=== PATIENT | male | born 1970 | race Caucasian/White ===

== ENCOUNTER → 2016-12-18 | Outpatient (CLI) | payer OTHER ==
[2016-12-18 13:22] LABS: BLOOD UREA NITROGEN 20 mg/dl (7-18); BUN/CREATININE RATIO 15.3 (10-20); CALCIUM 9.4 mg/dl (8.5-10.1); CARBON DIOXIDE 28 mmol/L (21-32); CHLORIDE 103 mmol/L (98-107); CHOLESTEROL 171 mg/dl (0-200); GLUCOSE 96 mg/dl (70-99); POTASSIUM 4.4 mmol/L (3.5-5.1); SODIUM 138 mmol/L (136-145)
[2016-12-18 13:27] LABS: CHOLESTEROL/HDL RATIO 3.3; HDL CHOLESTEROL 52 mg/dl; LDL CHOLESTEROL CALCULATED 80 mg/dl; TRIGLYCERIDES 194 mg/dl (0-150); VERY LOW DENSITY LIPOPROT CALC 39 mg/dl
== END | disposition home or self-care (01) ==
LOC: C.LABPVFM 07:26
PROVIDERS: ATTEND Internal Medicine
DX: M19.90 Unspecified osteoarthritis, unspecified site (principal); Z13.220 Encounter for screening for lipoid disorders

== ENCOUNTER 2018-01-12 17:43 | Emergency (ER) | payer SELFPAY ==
[~2018-01-12] VITALS: Ht 182.9 cm; Wt 70.2 kg
[2018-01-12 17:46] VITALS: TEMP 37.2; Ht 182.9 cm; Wt 70.2 kg
[2018-01-12] MEDS ORDERED: SODIUM CHLORIDE 0.9% 1000ML 1,000 ML IV ONE (18:00)
[2018-01-12] MEDS ORDERED: ONDANSETRON INJ 2 MG/ML 2 ML VIAL IV STA (18:00)
[2018-01-12] MEDS ORDERED: SODIUM CHLORIDE 0.9% 1000ML 1,000 ML IV STA ×2 (18:00→19:11)
[2018-01-12 18:19] LABS: BASO % 0.1 %; BASO ABS # 0.02 K/uL (0-0.2); EOS % 0.2 %; EOS ABS # 0.03 K/uL (0-0.5); HEMATOCRIT 46.9 % (42-52); HEMOGLOBIN 16.9 g/dL (14.0-18.0); IG# 0.06 K/uL (0.00-0.02); LYMPH % 2.7 %; LYMPH ABS # 0.47 K/uL (1.2-3.4); MEAN CELL VOLUME 81.1 fL (80-100); MEAN CORPUSCULAR HEMOGLOBIN 29.2 pg (25-34); MEAN PLATELET VOLUME 9.6 fL (7.4-10.4); MONO % 5.8 %; MONO ABS # 1.01 K/uL (0.11-0.59); NEUT % 90.9 %; PLATELET COUNT 261 K/uL (130-400); RED CELL DISTRIBUTION WIDTH CV 13.5 % (11.5-14.5); WHITE BLOOD COUNT 17.29 K/uL (4.8-10.8)
--- NOTE | 2018-01-12 18:21 | EMERGENCY ROOM VISIT NOTE ---
History Report prepared by Faustino: Denise Acosta Under the Supervision of: Dr. Librado Brunson M.D. First contact with patient: 17:49 Chief Complaint: ABDOMINAL PAIN Stated Complaint: ABDOMINAL PAIN, CRAMPING, VOMITING History of Present Illness The patient is a 47 year old male who presents to the Emergency Room with complaints of intermittent abdominal cramping starting last night. The pain is on the left side of his abdomen, just below the belly button. The pain worsened with driving over bumps in the road. He has been nauseous and vomiting since last night. He has been unable to keep any fluids down. He has had a low grade fever. He has a slight headache which he thinks is from not drinking enough water. He has some back pain from laying in bed more than usual. He denies any cough, diarrhea, leg pain/swelling, black/bloody stools, bloody or dark vomit, testicle pain/swelling, hematuria, or burning with urination. He has been urinating less which he attributes to not drinking enough water. The patient works in construction. He denies any recent injury or exposure to chemicals. He has had no known sick contacts. He has not eaten any unusual foods. He denies any recent travel. He notes that he started permethrin for scabies last week. He is not on any other medications. He has a history of hernia surgery. He still has his appendix and gallbladder. He denies any history of kidney stones. Source of History: patient, spouse/significant other Onset: last night Position: abdomen (left) Quality: cramping Timing: intermittent Modifying Factors (Worsening): other (bumps in the road) Associated Symptoms: + fevers (low grade), + headache, + nausea, + vomiting , + back pain, No cough, No melena, No hematochezia, No diarrhea, No urinary symptoms Review of Systems See HPI for pertinent positives & negatives. A total of 10 systems reviewed and were otherwise negative. Past Medical & Surgical Surgical Problems: (1) S/P hernia surgery Old medical records were reviewed. Nurse's notes were reviewed and I agree with. Family History No pertinent family history stated Social History Smoking Status: Never Smoker Alcohol Use: none Drug Use: none Occupation Status: employed Current/Historical Medications Scheduled Prednisone (Prednisone), 20 MG PO DIRECTED Allergies Coded Allergies: No Known Allergies (Unverified , 8/4/18) Physical Exam Vital Signs Date Time Temp Pulse Resp B/P (MAP) Pulse Ox O2 Delivery O2 Flow Rate FiO2 01/12/18 21:40 112/61 01/12/18 21:35 77 16 98 01/12/18 21:20 81 98 01/12/18 21:15 79 18 98 Room Air 01/12/18 20:45 74 99 01/12/18 20:15 73 117/67 98 01/12/18 18:53 125/67 01/12/18 18:52 77 18 125/67 98 Room Air 01/12/18 17:46 37.2 126 16 99/64 94 Room Air Physical Exam General: Mildly-ill appearing middle age male in no respiratory distress. HEENT: Normal cephalic atraumatic. Pupils are equal round and reactive to light. Extraocular movements are intact. Oropharynx is pink with moist mucous membranes. No swelling of the mouth lips or tongue. Neck: Supple with a midline trachea. No meningeal signs or stiffness, no JVD or bruits. No Stridor. Chest: Clear to auscultation bilaterally. No wheezes or rhonchi. No increased work of breathing. Heart: regular rate and rhythm. Abdomen: Soft, moderately tender in the RLQ, nondistended without rebound guarding or rigidity. Extremities: No cyanosis clubbing or edema. No calf tenderness or assymetry Spine/Back. Non tender to palpation. No CVA tenderness Skin: Good turgor without rashes. Neurologic exam: Cranial nerves two through 12 are intact. Motor and sensation are intact and symmetrical throughout. Medical Decision & Procedures ER Provider Diagnostic Interpretation: Radiology results as stated below per my review and radiologist interpretation: CT SCAN OF THE ABDOMEN AND PELVIS WITH IV CONTRAST CLINICAL HISTORY: Right lower quadrant abdominal pain. COMPARISON STUDY: No priors. TECHNIQUE: Following the IV administration of 116 cc of Optiray 320, CT scan of the abdomen and pelvis is performed from the lung bases to the proximal femora. Images are reviewed in the axial, sagittal, and coronal planes. IV contrast was administered without complication. A dose lowering technique was utilized adhering to the principles of ALARA. CT DOSE: 300.26 mGy.cm FINDINGS: Lung bases: The heart is normal in size and without pericardial effusion. The lung bases are clear. Liver: The contrast-enhanced liver is normal in size, contour, and attenuation. There is no intrahepatic biliary ductal dilatation. The hepatic veins and portal veins are patent. Gallbladder: Unremarkable. Spleen: Normal in size and attenuation. Pancreas: Unremarkable. Adrenal glands: Unremarkable. Kidneys: The contrast enhanced kidneys are normal in size and without hydronephrosis. The kidneys enhance symmetrically. Abdominal vasculature: The abdominal aorta is normal in course and caliber. Bowel: There is marked wall thickening and hyperemia seen involving a long segment of the distal/terminal ileum. This segment measures over 20 cm in length and there is surrounding inflammatory change. There is also mild wall thickening and edema in the adjacent cecum. The appearance is consistent with a nonspecific enteritis. There is no pneumatosis intestinalis or portal venous gas. There is no evidence of fistula formation. No bowel obstruction is identified. The appendix is well-visualized and normal. Calcified appendicoliths are noted. A small left-sided perianal fistula is suggested along the median gluteal crease on axial image #462. There is no evidence of perianal abscess. Peritoneum: There is trace abdominopelvic ascites. No intraperitoneal free air is seen. There is no evidence of abscess. Lymphadenopathy: Prominent mesenteric lymph nodes in the right lower quadrant measure up to 9 mm in short axis. These are likely on a reactive basis. Pelvic viscera: The bladder, prostate, and seminal vesicles are normal as imaged. Skeletal structures: Mild sclerotic change is noted in the sacroiliac joints. No lytic or blastic lesions are seen. IMPRESSION: 1. Findings are consistent with a severe enteritis involving predominantly the distal/terminal ileum, likely on an infectious/inflammatory basis. Specifically, the appearance is highly concerning for Crohn's disease. 2. A small left perianal fistula is suspected with no evidence of perianal abscess. Clinical correlation will be required. There is also sclerotic change present in the sacroiliac joints. These findings would also support a diagnosis of Crohn's disease. 3. There is trace abdominopelvic ascites, likely on a reactive basis. 4. There is no intraperitoneal free air or evidence of abscess. Electronically signed by: Alfa Mcfarlane M.D. 01/12/2018 7:00 PM Dictated Date/Time: 01/12/2018 6:51 PM Laboratory Results 01/12/18 18:00 Red Blood Count 5.78, Mean Corpuscular Volume 81.1, Mean Corpuscular Hemoglobin 29.2, Mean Corpuscular Hemoglobin Concent 36.0, Mean Platelet Volume 9.6, Neutrophils (%) (Auto) 90.9, Lymphocytes (%) (Auto) 2.7, Monocytes (%) (Auto) 5.8, Eosinophils (%) (Auto) 0.2, Basophils (%) (Auto) 0.1, Neutrophils # (Auto) 15.70, Lymphocytes # (Auto) 0.47, Monocytes # (Auto) 1.01, Eosinophils # (Auto) 0.03, Basophils # (Auto) 0.02 01/12/18 18:00 Test 01/12/18 18:00 01/12/18 18:12 01/12/18 18:15 01/12/18 19:32 White Blood Count 17.29 K/uL (4.8-10.8) Red Blood Count 5.78 M/uL (4.7-6.1) Hemoglobin 16.9 g/dL (14.0-18.0) Hematocrit 46.9 % (42-52) Mean Corpuscular Volume 81.1 fL (80-100) Mean Corpuscular Hemoglobin 29.2 pg (25-34) Mean Corpuscular Hemoglobin Concent 36.0 g/dl (32-36) Platelet Count 261 K/uL (130-400) Mean Platelet Volume 9.6 fL (7.4-10.4) Neutrophils (%) (Auto) 90.9 % Lymphocytes (%) (Auto) 2.7 % Monocytes (%) (Auto) 5.8 % Eosinophils (%) (Auto) 0.2 % Basophils (%) (Auto) 0.1 % Neutrophils # (Auto) 15.70 K/uL (1.4-6.5) Lymphocytes # (Auto) 0.47 K/uL (1.2-3.4) Monocytes # (Auto) 1.01 K/uL (0.11-0.59) Eosinophils # (Auto) 0.03 K/uL (0-0.5) Basophils # (Auto) 0.02 K/uL (0-0.2) RDW Standard Deviation 40.0 fL (36.4-46.3) RDW Coefficient of Variation 13.5 % (11.5-14.5) Immature Granulocyte % (Auto) 0.3 % Immature Granulocyte # (Auto) 0.06 K/uL (0.00-0.02) Est Creatinine Clear Calc Drug Dose 98.6 ml/min Estimated GFR () 115.1 Estimated GFR (Non- 99.3 BUN/Creatinine Ratio 17.2 (10-20) Calcium Level 8.8 mg/dl (8.5-10.1) Total Bilirubin 0.9 mg/dl (0.2-1) Direct Bilirubin 0.2 mg/dl (0-0.2) Aspartate Amino Transf (AST/SGOT) 13 U/L (15-37) Alanine Aminotransferase (ALT/SGPT) 26 U/L (12-78) Alkaline Phosphatase 87 U/L (45-117) Total Protein 7.5 gm/dl (6.4-8.2) Albumin 4.0 gm/dl (3.4-5.0) Lipase 203 U/L (73-393) Bedside Hemoglobin 16.7 g/dl (14.0-18.0) Bedside Hematocrit 49 % (42-52) Bedside Sodium 140 mEq/L (135-144) Bedside Potassium 3.7 mEq/L (3.3-5.0) Bedside Chloride 101 mEq/L (101-112) Bedside Total CO2 24 mEq/l (24-31) Anion Gap 20.0 mmol/L (16-25) Bedside Blood Urea Nitrogen 16 mg/dl (7-18) Bedside Creatinine 0.9 mg/dl (0.6-1.3) Bedside Glucose (other) 109 mg/dl (70-99) Bedside Ionized Calcium (Dane) 1.07 mmol/l (1.12-1.32) Urine Color DK YELLOW Urine Appearance CLEAR (CLEAR) Urine pH 5.5 (4.5-7.5) Urine Specific Jachin 1.032 (1.000-1.030) Urine Protein TRACE (NEG) Urine Glucose (UA) NEG (NEG) Urine Ketones 2+ (NEG) Urine Occult Blood NEG (NEG) Urine Nitrite NEG (NEG) Urine Bilirubin NEG (NEG) Urine Urobilinogen NEG (NEG) Urine Leukocyte Esterase NEG (NEG) Urine WBC (Auto) 1-5 /hpf (0-5) Urine RBC (Auto) 5-10 /hpf (0-4) Urine Hyaline Casts (Auto) 1-5 /lpf (0-5) Urine Epithelial Cells (Auto) 5-10 /lpf (0-5) Urine Bacteria (Auto) NEG (NEG) Bedside Lactic Acid Venous 0.70 mmol/L (0.90-1.70) Test 01/12/18 21:01 Erythrocyte Sedimentation Rate 2 mm/hr (0-14) Vitamin B12 Level 249 pg/mL (211-911) Folate 15.70 ng/mL (>5.38) Laboratory studies as stated above per my review. Medications Administered Medications (Trade) Dose Ordered Sig/Caryn Route Start Time Stop Time Status Last Admin Dose Admin Sodium Chloride 1,000 ml @ 999 mls/hr Q1H1M STAT IV 01/12/18 18:00 01/12/18 19:00 DC 01/12/18 18:12 999 MLS/HR Sodium Chloride 1,000 ml @ 150 mls/hr Q6H40M ONCE IV 01/12/18 18:00 01/12/18 23:02 DC 01/12/18 18:53 150 MLS/HR Ondansetron HCl (Zofran Inj) 4 mg NOW STAT IV 01/12/18 18:00 01/12/18 18:02 DC 01/12/18 18:12 4 MG Sodium Chloride 1,000 ml @ 999 mls/hr Q1H1M STAT IV 01/12/18 19:11 01/12/18 20:11 DC 01/12/18 19:49 999 MLS/HR Piperacillin Sod/ Tazobactam Sod (Zosyn Iv) 4.5 gm NOW STAT IV 01/12/18 19:17 01/12/18 19:18 DC 01/12/18 20:12 4.5 GM Methylprednisolone Sodium Succinate 40 mg/Syringe 0.64 ml @ 1.5 mls/min NOW STAT IV 01/12/18 21:33 01/12/18 21:34 DC 01/12/18 21:40 1.5 MLS/MIN ED Course 1751: Past medical records reviewed. The patient was evaluated in room B9, and a complete history and physical examination were performed. 1800: Zofran Inj 4 mg IV, Sodium Chloride 1000 ml @ 150 mls/hr IV, Sodium Chloride 1000 ml @ 999 mls/hr IV. 1850: I reevaluated the patient. He has just returned from CT. 1906: I reevaluated the patient. He is feeling better. I discussed the results and treatment plan with the patient. He verbalized agreement of the treatment plan. The patient will be evaluated for further management. 1910: Sodium Chloride 1000 ml @ 999 mls/hr IV. 1916: Zosyn IV 4.5 gm IV. 1917: Dr. Santiago [facility] hospitalist will evaluate the patient for further management. Medical Decision Differentials include, but are not limited to; appendicitis, UTI, colitis, dehydration, sepsis, electrolyte or metabolic abnormality. This patient comes in as described above. He is placed in room benign. He has been vomiting. On exam, he does have a right lower quadrant abdominal pain so there is concern for appendicitis among other potential etiologies. He was kept n.p.o. IV access established hydrated with IV normal saline boluses. He was given Zofran 4 mg IV. I-STAT labs were obtained and he has a normal creatinine and therefore sent over for a IV CAT scan to rule out appendicitis and other pathology. Urinalysis shows ketones consistent with dehydration. He was reassessed frequently. He felt significantly better with IV fluids and his vital signs normalized he was no longer tachycardic as blood pressure was normal. His white count was elevated at 17,000. He was given Zosyn 4.5 g IV. CAT scan shows severe enteritis most likely from Crohn's disease. Blood cultures have been obtained. Lactic acid was not elevated. I did consult the [facility] hospitalist team for possible admission/ observation given his white count enteritis. They evaluated the patient in the ER and discussed the case with the aluminum molding machine operator. They are going to send him home and arrange for follow-up with the GI specialist. Please refer to their notes. Medication Reconcilliation Current Medication List: was personally reviewed by me Blood Pressure Screening Patient's blood pressure: Low blood pressure (initially) Referred to hospitalist Consults Time Called: 1915 Consulting Physician: KT Shane hospitalist Returned Call: 1917 The patient will be evaluated for further management. Impression Primary Impression: Colitis Additional Impressions: RLQ abdominal pain Dehydration Scribe Attestation The scribe's documentation has been prepared under my direction and personally reviewed by me in its entirety. I confirm that the note above accurately reflects all work, treatment, procedures, and medical decision making performed by me. Departure Information Dispostion Being Evaluated By Hospitalist Prescriptions Prednisone (Prednisone) 20 Mg Tab 20 MG PO DIRECTED for 42 Days, #38 TAB 40mg daily for week1 30mg daily for week 2 20mg daily for week 3 10mg daily for week 4 5mg daily for week 6 Prov: Manolo Aparicio .MD 01/12/18 Referrals Pro,Lester Chaudhry M.D. (PCP) Patient Instructions My [facility] Problem Qualifiers
[2018-01-12 18:25] LABS: ISTAT CREATININE 0.9 mg/dl (0.6-1.3); ISTAT IONIZED CALCIUM 1.07 mmol/l (1.12-1.32); ISTAT POTASSIUM 3.7 mEq/L (3.3-5.0)
[2018-01-12] MEDS ORDERED: OPTIRAY 320 IV PRN (18:30)
[2018-01-12 18:44] LABS: CALCIUM 8.8 mg/dl (8.5-10.1); CREATININE 0.91 mg/dl (0.60-1.40); POTASSIUM 3.6 mmol/L (3.5-5.1); TOTAL PROTEIN 7.5 gm/dl (6.4-8.2)
--- NOTE | 2018-01-12 19:01 | DIAGNOSTIC IMAGING REPORT ---
CT SCAN OF THE ABDOMEN AND PELVIS WITH IV CONTRAST CLINICAL HISTORY: Right lower quadrant abdominal pain. COMPARISON STUDY: No priors. TECHNIQUE: Following the IV administration of 116 cc of Optiray 320, CT scan of the abdomen and pelvis is performed from the lung bases to the proximal femora. Images are reviewed in the axial, sagittal, and coronal planes. IV contrast was administered without complication. A dose lowering technique was utilized adhering to the principles of ALARA. CT DOSE: 300.26 mGy.cm FINDINGS: Lung bases: The heart is normal in size and without pericardial effusion. The lung bases are clear. Liver: The contrast-enhanced liver is normal in size, contour, and attenuation. There is no intrahepatic biliary ductal dilatation. The hepatic veins and portal veins are patent. Gallbladder: Unremarkable. Spleen: Normal in size and attenuation. Pancreas: Unremarkable. Adrenal glands: Unremarkable. Kidneys: The contrast enhanced kidneys are normal in size and without hydronephrosis. The kidneys enhance symmetrically. Abdominal vasculature: The abdominal aorta is normal in course and caliber. Bowel: There is marked wall thickening and hyperemia seen involving a long segment of the distal/terminal ileum. This segment measures over 20 cm in length and there is surrounding inflammatory change. There is also mild wall thickening and edema in the adjacent cecum. The appearance is consistent with a nonspecific enteritis. There is no pneumatosis intestinalis or portal venous gas. There is no evidence of fistula formation. No bowel obstruction is identified. The appendix is well-visualized and normal. Calcified appendicoliths are noted. A small left-sided perianal fistula is suggested along the median gluteal crease on axial image #462. There is no evidence of perianal abscess. Peritoneum: There is trace abdominopelvic ascites. No intraperitoneal free air is seen. There is no evidence of abscess. Lymphadenopathy: Prominent mesenteric lymph nodes in the right lower quadrant measure up to 9 mm in short axis. These are likely on a reactive basis. Pelvic viscera: The bladder, prostate, and seminal vesicles are normal as imaged. Skeletal structures: Mild sclerotic change is noted in the sacroiliac joints. No lytic or blastic lesions are seen. IMPRESSION: 1. Findings are consistent with a severe enteritis involving predominantly the distal/terminal ileum, likely on an infectious/inflammatory basis. Specifically, the appearance is highly concerning for Crohn's disease. 2. A small left perianal fistula is suspected with no evidence of perianal abscess. Clinical correlation will be required. There is also sclerotic change present in the sacroiliac joints. These findings would also support a diagnosis of Crohn's disease. 3. There is trace abdominopelvic ascites, likely on a reactive basis. 4. There is no intraperitoneal free air or evidence of abscess. Electronically signed by: Alfa Mcfarlane M.D. 01/12/2018 7:00 PM Dictated Date/Time: 01/12/2018 6:51 PM
[2018-01-12] MEDS ORDERED: PIPERACILLIN/TAZOBACTAM 4.5 GM/100ML D5W IV STA (19:17)
[2018-01-12] MEDS ORDERED: PRED20TA PO (20:40)
--- NOTE | 2018-01-12 20:58 | Medical Consult ---
Consultation Date of Consultation: Jan 12, 2018. Attending Physician: Reason for Consultation: Abdominal pain History of Present Illness Patient is a 47 year old male with no known medical problems that presented to [facility] due to RLQ abdominal pain. His abdominal pain started yesterday evening after eating dinner. He said it came on gradually and is located in his RLQ. The pain is a sharp pain that comes and goes. It lasts for a few minutes at a time. He rates the pain as a 7/ 10 in severity. Associated with the abdominal pain he has had non bloody vomiting x4 since yesterday evening. He notes he has had chills for the past few days. He notes that he has had diffuse joint aches for the last couple months and he has also had a decrease in his vision of the last few months. He denies any diarrhea, blood in stool, night sweats, weight loss, recent travel , change in diet, recent antibiotic use. He has a family history of Rheumatoid Arthritis and Hypothyroidism on his mothers side. In the ED he was tachycardic at 126 which resolved after 1 L of fluids. His labs were significant for a WCC of 17. His imaging was significant for a severe enteritis of the terminal ileum with mesenteric lymph nodes and a left gluteal fistula. After being given fluids and zofran in the ED the patient became asymptomatic and was feeling better. We were asked to see the patient for consideration of admission. Past Medical/Surgical History Hernia as a child Family History Mother- hypothyroidism, Rheumatoid Arthritis Social History Smoking Status: Never Smoker Alcohol Use: occasionally Drug Use: none Marital Status: Housing Status: lives with significant other Occupation Status: employed Allergies Coded Allergies: No Known Allergies (Unverified , 01/12/18) Home Medications none Current Inpatient Medications Current Inpatient Medications Medications (Trade) Dose Ordered Sig/Caryn Route Start Time Stop Time Status Last Admin Dose Admin Sodium Chloride 1,000 ml @ 150 mls/hr [id number] ONCE IV 01/12/18 18:00 01/13/18 00:39 01/12/18 18:53 150 MLS/HR Ioversol (Optiray 320) 100 ml UD PRN IV 01/12/18 18:30 01/16/18 18:29 Methylprednisolone Sodium Succinate 40 mg/Syringe 0.64 ml @ 1.5 mls/min NOW ONCE IV 8/4/18 20:30 01/12/18 20:31 UNV Review of Systems 10 systems were reviewed and negative except as noted in the HPI Physical Exam Date Time Temp Pulse Resp B/P (MAP) Pulse Ox O2 Delivery O2 Flow Rate FiO2 01/12/18 18:52 77 18 125/67 98 Room Air 01/12/18 17:46 37.2 126 16 99/64 94 Room Air General Appearance: WD/WN, no apparent distress Eyes: PERRL, EOMI, + pertinent finding (scleral mildly injected) ENT: + pertinent finding (poor dentition and a few missing teeth, no ulcers noted) Neck: supple, no adenopathy, no JVD, trachea midline Respiratory/Chest: chest non-tender, lungs clear Cardiovascular: regular rate, rhythm, no murmur, normal peripheral pulses Abdomen/GI: normal bowel sounds, soft, + tenderness (mild right lower quadrant tenderness, no rebound or guarding) Back: normal inspection, no muscle spasm, normal range of motion Extremities/Musculoskelatal: normal inspection, no calf tenderness, no pedal edema, non-tender Neurologic/Psych: alert, normal mood/affect, oriented x 3 Laboratory Results Last 24 Hours Test 01/12/18 18:00 01/12/18 18:12 01/12/18 18:15 01/12/18 19:32 White Blood Count 17.29 K/uL Red Blood Count 5.78 M/uL Hemoglobin 16.9 g/dL Hematocrit 46.9 % Mean Corpuscular Volume 81.1 fL Mean Corpuscular Hemoglobin 29.2 pg Mean Corpuscular Hemoglobin Concent 36.0 g/dl Platelet Count 261 K/uL Mean Platelet Volume 9.6 fL Neutrophils (%) (Auto) 90.9 % Lymphocytes (%) (Auto) 2.7 % Monocytes (%) (Auto) 5.8 % Eosinophils (%) (Auto) 0.2 % Basophils (%) (Auto) 0.1 % Neutrophils # (Auto) 15.70 K/uL Lymphocytes # (Auto) 0.47 K/uL Monocytes # (Auto) 1.01 K/uL Eosinophils # (Auto) 0.03 K/uL Basophils # (Auto) 0.02 K/uL RDW Standard Deviation 40.0 fL RDW Coefficient of Variation 13.5 % Immature Granulocyte % (Auto) 0.3 % Immature Granulocyte # (Auto) 0.06 K/uL Sodium Level 136 mmol/L Potassium Level 3.6 mmol/L Chloride Level 104 mmol/L Carbon Dioxide Level 24 mmol/L Anion Gap 8.0 mmol/L 20.0 mmol/L Blood Urea Nitrogen 16 mg/dl Creatinine 0.91 mg/dl Est Creatinine Clear Calc Drug Dose 98.6 ml/min Estimated GFR () 115.1 Estimated GFR (Non- 99.3 BUN/Creatinine Ratio 17.2 Random Glucose 104 mg/dl Calcium Level 8.8 mg/dl Total Bilirubin 0.9 mg/dl Direct Bilirubin 0.2 mg/dl Aspartate Amino Transf (AST/SGOT) 13 U/L Alanine Aminotransferase (ALT/SGPT) 26 U/L Alkaline Phosphatase 87 U/L Total Protein 7.5 gm/dl Albumin 4.0 gm/dl Lipase 203 U/L Bedside Hemoglobin 16.7 g/dl Bedside Hematocrit 49 % Bedside Sodium 140 mEq/L Bedside Potassium 3.7 mEq/L Bedside Chloride 101 mEq/L Bedside Total CO2 24 mEq/l Bedside Blood Urea Nitrogen 16 mg/dl Bedside Creatinine 0.9 mg/dl Bedside Glucose (other) 109 mg/dl Bedside Ionized Calcium (Dane) 1.07 mmol/l Urine Color DK YELLOW Urine Appearance CLEAR Urine pH 5.5 Urine Specific [place] 1.032 Urine Protein TRACE Urine Glucose (UA) NEG Urine Ketones 2+ Urine Occult Blood NEG Urine Nitrite NEG Urine Bilirubin NEG Urine Urobilinogen NEG Urine Leukocyte Esterase NEG Urine WBC (Auto) 1-5 /hpf Urine RBC (Auto) 5-10 /hpf Urine Hyaline Casts (Auto) 1-5 /lpf Urine Epithelial Cells (Auto) 5-10 /lpf Urine Bacteria (Auto) NEG Bedside Lactic Acid Venous 0.70 mmol/L Test 01/12/18 20:30 01/12/18 20:31 Assessment & Plan Kike is a 47 year old male with no significant past medical history who presented to [facility] with RLQ pain, diffuse arthralgias and decreasing vision. His CT scan is concerning for Chron's disease. In the ED after fluids, the patient was asymptomatic and was not having any pain. I spoke to Dr. Barrios and relayed the patients story to him. He agreed that the patient could be discharged with a prednisone taper and with follow up with the GI team as an outpatient in preparation for a scope later in the week. Before discharging the patient I will add on an ESR, B12 and folic acid. I will also give the patient 40mg of methylprednisolone in the ED and send the steroid taper to the pharmacy to be picked up in the morning. We will give the patient some food and water in the ED to ensure that he does not continue to vomit after eating. If he is able to keep food down then we will discharge him with precautions that if he were to have worsening abdominal pain, vomiting, fevers or diarrhea then he is to come back to the emergency department for further evaluation. The patient was understanding and was in agreement with this plan. Resident Physician Supervision Note: I was present with Dr. Castaneda during the history and exam. I discussed the case with the resident and agree with the findings and plan as documented in the note. Any exceptions or clarifications are listed here: 47 y/o M without previous known medical issues presenting with arthralgias, RLQ , nausea and vomiting. Abdominal pain is described as acute. Arthralgias have been present for a few months at least and he believes his vision is worsening. A CT of the abdomen revealed inflammation in the terminal ileum and cecum, a small perianal fistula and sclerotic changes of the hip joints. Findings are most consistent with Crohn's disease. There is no uveitis on exam. There is no evidence of obstruction OE AAO x 3 S1,2 R CTAB NT, ND No CCE P: The pt following hydration is tolerating PO. It is unclear if his N/V is related to likely finding of Crohn's. We discussed the case with the GI service to arrange outpt follow-up. He will be placed on a steroid taper and GI has offered to arrange an office visit. The pt will be DCd for outpt f/u therefore. Documented By: Jose Angel Santiago
[2018-01-12] MEDS ORDERED: METHYLPREDNISOLONE IV 40 MG in SYRINGE 0 ML IV STA (21:33)
[2018-01-12 21:35] VITALS: PULSE 77; O2SAT 98
[2018-01-12 21:40] VITALS: BP 112/61
== END 2018-01-12 21:50 | disposition home or self-care (01) ==
LOC: C.EDB 17:44
DX: K52.9 Noninfective gastroenteritis and colitis, unspecified (principal); R03.1 Nonspecific low blood-pressure reading; D72.829 Elevated white blood cell count, unspecified; M54.9 Dorsalgia, unspecified; Z87.19 Personal history of other diseases of the digestive system; E86.0 Dehydration